=== PATIENT | male | born 1950 | race Caucasian/White ===

== ENCOUNTER 2022-11-19 08:50 | Outpatient (CLI) | payer OTHER, SELFPAY ==
[2022-11-19 15:01] LABS: Chloride* 106 mmol/L (96-114); Sodium* 141 mmol/L (135-149)
[2022-11-19 15:04] LABS: Blood Urea Nitrogen* 16 mg/dL (7-30); Carbon Dioxide* 26 mmol/L (20-32); Cholesterol* 168 mg/dL (90-199); Creatinine* 1.1 mg/dL (0.5-1.5); Estimated Glomerular Filt Rate 71 ml/min
[2022-11-19 15:05] LABS: Calcium* 9.3 mg/dL (8.4-10.6); Glucose* 97 mg/dL (60-115); HDL Cholesterol* 52 mg/dL (>=40)
[2022-11-19 15:17] LABS: LDL Cholesterol Calculated -22 mg/dL (<100); Triglycerides* 691 mg/dL (40-149)
[2022-11-19 15:53] LABS: Vitamin B12* 494 pg/mL (243-894)
[2022-11-19 16:43] LABS: Potassium* 4.7 mmol/L (3.6-5.1)
== END 2022-11-19 08:51 | disposition home or self-care (01) ==
PROVIDERS: PCP Family Medicine; Visit Provider Family Medicine
DX: Z00.00 Encounter for general adult medical examination without abnormal findings (principal); I10 Essential (primary) hypertension; E78.5 Hyperlipidemia, unspecified; Z13.21 Encounter for screening for nutritional disorder; Z13.29 Encounter for screening for other suspected endocrine disorder
CPT/HCPCS: 80048; 80061; 82607; 84443

== ENCOUNTER 2023-09-29 12:56 | Outpatient (CLI) | payer OTHER, SELFPAY | END 2023-09-29 12:57 | disposition home or self-care (01) | LOC: LKVREF 12:58 | PROVIDERS: PCP Family Medicine; Visit Provider Family Medicine | DX: R30.0 Dysuria (principal) | CPT/HCPCS: 87086; 87186 ==

== ENCOUNTER 2023-10-10 11:48 | Outpatient (CLI) | payer OTHER, SELFPAY | END 2023-10-10 11:49 | disposition home or self-care (01) | LOC: LKVREF 11:49 | PROVIDERS: PCP Family Medicine; Visit Provider Family Medicine | DX: R30.0 Dysuria (principal); Q54.9 Hypospadias, unspecified | CPT/HCPCS: 87086 ==

== ENCOUNTER 2023-11-19 13:51 | Outpatient (CLI) | payer OTHER, SELFPAY | END 2023-11-19 13:52 | disposition home or self-care (01) | PROVIDERS: PCP Family Medicine; Visit Provider Family Medicine | DX: Z00.00 Encounter for general adult medical examination without abnormal findings (principal); I10 Essential (primary) hypertension; E78.5 Hyperlipidemia, unspecified; R35.1 Nocturia; Z87.898 Personal history of other specified conditions; Z12.5 Encounter for screening for malignant neoplasm of prostate | CPT/HCPCS: 80048; 80061; G0103 ==

== ENCOUNTER 2024-11-22 08:34 | Outpatient (CLI) | payer MEDICARE, SELFPAY | END 2024-11-22 08:35 | disposition home or self-care (01) | PROVIDERS: PCP Family Medicine; Visit Provider Family Medicine | DX: I10 Essential (primary) hypertension (principal); E78.2 Mixed hyperlipidemia | CPT/HCPCS: 80048; 80061 ==